=== PATIENT | female | born 1960 | race Caucasian/White ===

== ENCOUNTER 2017-01-18 09:01 | Day surgery (SDC) | payer BC ==
[2017-01-18] VITALS (12 sets, daily range): BP systolic 100–126; BP diastolic 48–64; PULSE 46–66; RESP 16–21; Ht 157.5 cm; Wt 62.0 kg
[~2017-01-18] VITALS: Ht 157.5 cm; Wt 62.0 kg
[~2017-01-18 09:01] MED LIST: BUPIVACAINE 0.75% (MPF) 10 ML INJ ONE; EPINEPHrine 1 MG INJ ONE; LIDOCAINE 1% (MPF) 10 ML INJ ONE; LIDOCAINE 2% (SDV) 5 ML INJ ONE; TIMOLOL 0.5% 5 ML OPH ONE
[2017-01-18] MEDS ORDERED: ATEN-51 PO (10:21)
[2017-01-18] MEDS ORDERED: LEVO125T71 PO (10:21)
[2017-01-18] MEDS ORDERED: FOLI0.4T2 PO (10:22)
[2017-01-18] MEDS ORDERED: [UNRECOGNIZED DRUG - CODE] PO (10:23)
[2017-01-18] MEDS ORDERED: FER325 PO (10:24)
[2017-01-18] MEDS ORDERED: CHOL200073 PO (10:27)
[2017-01-18] MEDS ORDERED: CYAN500T46 PO (10:28)
[2017-01-18] MEDS ORDERED: CYCLOPENTOLATE 2% 2 ML OPH OPER SCH (10:30)
[2017-01-18] MEDS ORDERED: NEPAFENAC 0.1% 3 ML OPH OPER SCH (10:30)
[2017-01-18] MEDS ORDERED: MOXIFLOXACIN 0.5% 3 ML OPH OPER ONE (10:30)
[2017-01-18] MEDS ORDERED: PHENYLephrine 10% 5 ML OPH OPER SCH (10:30)
[2017-01-18] MEDS ORDERED: MIDAZOLAM 1 MG/ML 2 ML INJ ONE (10:54)
[2017-01-18] MEDS ORDERED: FENTAnyl 50 MCG/ML VIAL ONE (10:55)
--- NOTE | 2017-01-18 10:56 | HPN ---
Date/Time of Note Date/Time of Note DATE: 01/18/17 TIME: 10:55 Interval H&P Admission Note Pt. seen H&P reviewed: No system changes CAREY RIVERA MD Jan 18, 2017 10:56
[2017-01-18] MEDS ORDERED: LIDOCAINE 1% (MPF) 10 ML INJ INJ ONE (11:03)
[2017-01-18] MEDS ORDERED: PHENYLephrine 10% 5 ML OPH RIGHT EYE ONE (11:03)
[2017-01-18] MEDS ORDERED: TIMOLOL 0.5% 5 ML OPH RIGHT EYE ONE (11:31)
[2017-01-18] MEDS ORDERED: ONDANSETRON 4 MG INJ ONE (11:48)
[2017-01-18] MEDS ORDERED: LIDOCAINE 2% (SDV) 5 ML INJ ONE (11:48)
[2017-01-18] MEDS ORDERED: PROPOFOL 60 ML ONE (11:48)
--- NOTE | 2017-01-18 12:09 | SIPON ---
Date/Time of Note Date/Time of Note DATE: 01/18/17 TIME: 11:55 Operative Report Preoperative Diagnosis cataract Postoperative Diagnosis same Operation/Procedure Performed cataract extraction with lens implat Surgeon see signature line customer assistance associate none Anesthesia: MAC Estimated blood loss: none Transfusion Required none Specimen none Grafts/Implants lens implant none Complications none CAREY RIVERA MD Jan 18, 2017 12:07
--- NOTE | 2017-01-18 13:48 | OPR ---
DATE OF OPERATION: 01/18/2017 SURGEON: Carey Leal MD DRUG AND ALCOHOL TREATMENT SPECIALIST: None. ANESTHESIOLOGIST: PREOPERATIVE DIAGNOSIS: Senile nuclear sclerotic cataract, right eye. POSTOPERATIVE DIAGNOSIS: Senile nuclear sclerotic cataract, right eye. OPERATION: Kelman phacoemulsification with implantation of intraocular lens, right eye. DESCRIPTION OF PROCEDURE: Following standard preparation and draping of the patient, a lid speculum was placed for immobilization of the lids. A SuperBlade incision was made at the corneal limbal ju nction for access into the anterior chamber. Approximately 0.03 mL of nonpreserved 1% Xylocaine was instilled into the anterior chamber, and after approximately 5 to 10 seconds, this was replaced wit h Viscoat. A clear corneal incision was then made using the 3.2 mm keratome, following which an ant erior circular capsulorrhexis was made. The major portion of the lens cortex and nucleus were then dislocated from the capsular bag using hydrodissection. The KPE tip was introduced into the eye and controlling tumbling of the lens with a 2-handed technique, the major portion of the lens cortex an d nucleus was removed, maintaining the lens in the plane of the iris. The remaining cortical materi al was removed via the irrigating aspirating instrument. The capsular bag and the anterior chamber were now reformed using Viscoat. The proper power lens was then placed in the capsular bag. The vi scoelastic was then removed from the eye and the eye reformed with balanced salt solution. One 10-0 Vicryl suture was then used to ensure closure of the corneal incision. The eye was reformed to nor mal pressure using balanced salt solution. The eye and cul-de-sacs were now simply flooded with 5% Betadine solution. One drop of Vigamox and 1 drop of Betagan solution were instilled into the eye. A light pressure dressing was applied, and the patient was returned to the recovery room in satisfa ctory condition. Dictated By: CAREY OVALLES/ARLEY Conf#: [id number] DID#: [id number]
== END 2017-01-18 13:50 | disposition home or self-care (01) ==
LOC: SDS 09:01
PROVIDERS: ATTEND Ophthalmology
DX: H25.11 Age-related nuclear cataract, right eye (principal); I10 Essential (primary) hypertension; E03.9 Hypothyroidism, unspecified
CPT/HCPCS: 66984; J0171; J2250; J2405; J3010; V2632